=== PATIENT | female | born 1960 | race Caucasian/White ===

== ENCOUNTER 2020-09-29 20:41 | Emergency (ER) | payer MEDICARE ==
[~2020-09-29] VITALS: Ht 157.5 cm; Wt 63.5 kg
[2020-09-29] MEDS ORDERED: FLUT50BL (21:12)
[2020-09-29] MEDS ORDERED: [UNRECOGNIZED DRUG - OTHER] (21:12)
[2020-09-29] MEDS ORDERED: SERT-269 (21:12)
[2020-09-29] MEDS ORDERED: CELE100C (21:12)
[2020-09-29] MEDS ORDERED: PANT40GR (21:12)
[2020-09-29] MEDS ORDERED: [UNRECOGNIZED DRUG - OTHER] (21:12)
[2020-09-29] MEDS ORDERED: GABA100C6 (21:12)
[2020-09-29] MEDS ORDERED: MIRT15TA90 (21:12)
[2020-09-29] MEDS ORDERED: SUCRALFATE (21:12)
[2020-09-29] MEDS ORDERED: HYDR12.572 (21:12)
[2020-09-29] MEDS ORDERED: HYDR25TA (21:12)
--- NOTE | 2020-09-29 21:26 | PHYS DOC ---
Adult General Chief Complaint Chief Complaint: FLU SYMPTOM HPI HPI Patient is a 60-year-old female, with a past medical history significant for hypertension who recently moved to [place] who presents to the emergency department with a chief complaint of soft stools. States over the last couple of days she has had softer than normal stools but not watery diarrhea. Denies any history of melena/hematochezia or any now. Denies any recent travel, illnesses, fevers, Covid/flu symptoms other than the soft stool. Denies any chest pain, shortness of breath, abdominal pain, nausea, vomiting, Dysuria. Does endorse some urinary frequency and darker than normal urine. States she has had a slightly decreased appetite over the last couple of days but has been eating small amounts and trying to drink water. Denies any need for Tylenol or ibuprofen. Requested information for local primary care physicians as she does not have one. Review of Systems Review of Systems Review of systems otherwise unremarkable except noted in HPI. Physical Exam Physical Exam Constitutional: Well developed, well nourished, no acute distress, non-toxic appearance. [] HENT: Normocephalic, atraumatic, oropharynx moist, no oral exudates Eyes: conjunctiva normal, no discharge. [] Neck: Normal range of motion, no tenderness, Cardiovascular:Heart rate regular rhythm, no murmur [] Lungs & Thorax: Bilateral breath sounds clear to auscultation [] Abdomen: Bowel sounds normal, soft, no tenderness, no masses, no pulsatile masses. [] Skin: Warm, dry, no erythema, no rash. [] Back: No tenderness, no CVA tenderness. [] Extremities: No tenderness, no cyanosis, no clubbing, ROM intact, no edema. [] Neurologic: Alert and oriented X 3, normal motor function, normal sensory function, no focal deficits noted. [] Psychologic: Affect normal, judgement normal, mood normal. [] EKG EKG [] Radiology/Procedures Radiology/Procedures [] Heart Score Risk Factors: Risk Factors: DM, Current or recent (<one month) smoker, HTN, HLP, family history of CAD, obesity. Risk Scores: Risk Factors: DM, Current or recent (<one month) smoker, HTN, HLP, family history of CAD, obesity. Course & Med Decision Making Course & Med Decision Making Patient is a pleasant 60-year-old female who presents with loose stools for 2 days Vital signs notable for hypertension. Physical exam noted above. Patient otherwise completely asymptomatic and feeling well. Urine sample suggestive of urinary tract infection. Started on Keflex in the ED. Given prescription of Keflex. Discussed all findings with patient and given primary care physician contact information. Advised to call first thing Friday morning to set up a follow-up appointment and establish care. Advised a light diet over the next few days as well as plenty of hydration. Advised quarantine for the next couple of days until she talks to her doctor just in case she does have an infection including Covid/flu even becoming cold. Given information on Covid. Advised to come back to the ED immediately with any new or concerning symptoms. Patient grateful, verbalized understanding and agreed with plan of discharge. [] Dragon Disclaimer Dragon Disclaimer This electronic medical record was generated, in whole or in part, using a voice recognition dictation system. Departure Departure: Impression: Primary Impression: Loose stools Condition: GOOD Referrals: PCP,NO (PCP) Patient Instructions: Diarrhea, [id number] Additional Instructions: Here are some Covid fax and information. You were not tested for Covid and had very few symptoms suggesting Covid but do have the loose stools. Please read. COVID-19. It is an infection caused by a new type of coronavirus. COVID-19 will cause cold-like or mild flu symptoms in most. It can cause more severe symptoms like problems breathing in some. There is no treatment for COVID-19. The body will clear the infection over time. Self-care will help to ease discomfort. Steps to Take: Self-Care Rest as needed. Healthy habits may help you feel better. Steps include: Choose healthy foods including fruits and vegetables. Drink water throughout the day. Get plenty of sleep each night. If you smoke, try to quit. It may ease breathing. Avoid alcohol. Keep Others Healthy The virus can spread to others. Droplets are released every time you sneeze or cough. The droplets can get into the mouth, nose, or eyes of people near you and lead to infection. To lower the chances of spreading COVID-19 to others: Stay at home until your doctor has said it is safe to leave. If you tested positive this will mean staying isolated until both of the following are true: At least 7 days have passed since the start of illness. You are free of fever for at least 72 hours without the use of medicine. During this time: - Avoid public areas, events, or transportation. Do not return to work or school until your doctor has said it is safe to do so. - Call ahead if you need to go to a medical center. Let them know you may have COVID-19. It will help them guide you where to go. They may also ask you to wear a facemask when you come to the office. - If you call for emergency medical services, let them know you may have COVID- 19. While at home: - Try to avoid close contact with others. Stay about 6 feet away. - If possible, spend most of your time in a separate room from others. - Use a face mask if you will be in close contact with others such as sharing a room or vehicle. - Have someone wipe down common surfaces in the home. Use household velvet weaver every day on areas like doorknobs, counters, or sinks. - Cough or sneeze into a tissue. Throw the tissue away right after use. If a tissue is not available, cough or sneeze into your elbow. - Wash your hands often. Wash them after sneezing or coughing. Use soap and water and wash for at least 20 seconds. Alcohol based hand spool cleaner hand can be used if soap and water is not available. - Do not prepare food for others. Avoid sharing personal items like forks, spoons, or toothbrushes. - Avoid close contact with pets while you are sick. There is no evidence of the virus passing to pets. This is a safety step until more is known about this virus. Isolation can be frustrating. Social interaction can help. Keep in touch with friends and family through phone and tech options. You can still interact with others in your home, just keep a safe distance of about 6 feet. Follow-up: Your doctors office will check in with you to see if there are any changes in your health. You may be asked to keep track of symptoms to share with them. They will also let you know when you are clear to be in public again. Problems to Look Out For: Contact your doctor if your recovery is not going as you expect. Get emergency care if you have problems such as: - Trouble breathing - Nonstop chest pain or pressure - Changes in awareness, confusion, or problems waking - Lips or face have bluish color - Worsening of symptoms If you think you have an emergency, call for emergency medical services right away. As taken from [facility] Cephalexin (CEPHALEXIN) 500 Mg Capsule 1 CAP PO TID for UTI for 5 Days, #15 CAP Prov: GORDON HEADLEY MD 09/29/20 GORDON HEADLEY MD Sep 29, 2020 21:26
[2020-09-29 21:58] LABS: CLARITY,URINE HAZY; COLOR,URINE YELLOW
[2020-09-29 21:59] LABS: BILIRUBIN,URINE NEG (NEG); GLUCOSE,URINE NEG (NEG); NITRITE,URINE POS (NEG); UROBILINOGEN,URINE 0.2 mg/dL (0.2 mg/dL)
[2020-09-29 22:00] LABS: BACTERIA,URINE MOD /HPF (0-FEW); SQUAMOUS EPITHELIAL CELL,UR MOD /LPF; WBC,URINE >40 /HPF (0-4)
[2020-09-29] MEDS ORDERED: CEPH500C PO (22:04)
[2020-09-29] MEDS ORDERED: CEPHALEXIN 250 MG CAPSULE PO ONE (22:15)
[2020-09-29 22:16] VITALS: BP 150/84
== END 2020-09-29 22:21 | disposition home or self-care (01) ==
LOC: ER 20:41
DX: R19.7 Diarrhea, unspecified (principal); R35.0 Frequency of micturition; I10 Essential (primary) hypertension
CPT/HCPCS: 81001; 87077; 87086; 87186; 99283

== ENCOUNTER → 2020-12-19 | Outpatient (CLI) | payer MEDICARE ==
[~2020-12-19] MED LIST: CELE100C; CEPH500C PO; FLUT50BL; GABA100C6; HYDR12.572; HYDR25TA; MIRT15TA90; PANT40GR; SERT-269; SUCRALFATE; [UNRECOGNIZED DRUG - OTHER]; [UNRECOGNIZED DRUG - OTHER]
--- NOTE | 2020-12-19 15:48 | RAD ---
EXAM: Right shoulder, 3 views. HISTORY: Pain. COMPARISON: None. FINDINGS: 3 views of the right shoulder obtained. There is a right shoulder arthroplasty. There is sl ight widening of the glenohumeral joint space which is likely projectional. There is chronic degenera tive change and postoperative change involving the glenoid. There is internal fixation of a healed ri ght clavicle fracture. IMPRESSION: 1. Right shoulder arthroplasty. There is no evidence of arthroplasty loosening or periprosthetic frac ture. 2. Degenerative and postoperative changes involving the glenoid. There is slight widening of the lurdes ohumeral joint space which is likely projectional. This is not clearly within limits to suggest sublu xation. Electronically signed by: Annalee Carrillo MD (12/19/2020 3:46 PM) [id number]
== END ==
LOC: RAD 15:25
PROVIDERS: ATTEND Physician Assistant
DX: M19.011 Primary osteoarthritis, right shoulder (principal)
CPT/HCPCS: 73030

== ENCOUNTER 2021-09-20 21:44 | Emergency (ER) | payer MEDICARE ==
[~2021-09-20] VITALS: Ht 157.5 cm; Wt 63.5 kg
[2021-09-20 21:57] VITALS: BP 158/93
--- NOTE | 2021-09-20 22:50 | PHYS DOC ---
Past History Past Medical History: Depression, Hypertension Additional Past Medical Histor: clsed head injury, TBI, Autistic Past Surgical History: Hysterectomy Additional Past Surgical Histo: shoulder, bilateral knee replacements Alcohol Use: None Adult General Chief Complaint Chief Complaint: ALTERED MENTAL STATUS HPI HPI Patient is a 61-year-old female with a history of anxiety and depression who presents to the emergency department with a chief complaint of some generalized body aches over the last couple days that she noticed began the next day after going to the movie theater. Patient and family wondering if she has COVID and wants a COVID swab. Denies any recent travel, traumas, fevers, rash, other illnesses, known ill contacts, chest pain, shortness of breath, abdominal pain, nausea, vomiting, diarrhea, dysuria, hematuria, blood in the stool. States that her urine does seem to be darker than usual and having some frequency. Denies any alcohol or drug use states she is eating and drinking normally for her. States she is otherwise making urine and stool normally for her. Denies any numbness/weakness/tingling. Denies any trouble sitting, standing or walking. Review of Systems Review of Systems Review of systems otherwise unremarkable except noted in HPI Allergies Allergies Allergies Coded Allergies Type Severity Reaction Last Updated Verified No Known Drug Allergies 09/29/20 No Physical Exam Physical Exam Constitutional: Well developed, well nourished, no acute distress, non-toxic appearance. [] HENT: Normocephalic, atraumatic, bilateral external ears normal, oropharynx moist, no oral exudates, nose normal. [] Eyes: conjunctiva normal, no discharge. [] Neck: Normal range of motion, no tenderness, supple, no stridor. [] Cardiovascular:Heart rate regular rhythm, no murmur [] Lungs & Thorax: Bilateral breath sounds clear to auscultation [] Abdomen: soft, no tenderness, no masses, no pulsatile masses. [] Skin: Warm, dry, no erythema, no rash. [] Back: No tenderness, no CVA tenderness. [] Extremities: No tenderness, no cyanosis, no clubbing, ROM intact, no edema. [] Neurologic: Alert and oriented X 3, normal motor function, normal sensory function, no focal deficits noted. [] Psychologic: Affect normal, judgement normal, mood normal. [] Current Patient Data Vital Signs Vital Signs Date Time Temp Pulse Resp B/P (MAP) Pulse Ox O2 Delivery O2 Flow Rate FiO2 09/20/21 21:57 98.6 86 18 158/93 (114) 97 Room Air EKG EKG [] Radiology/Procedures Radiology/Procedures [] Heart Score C/O Chest Pain: No Risk Factors: Risk Factors: DM, Current or recent (<one month) smoker, HTN, HLP, family history of CAD, obesity. Risk Scores: Risk Factors: DM, Current or recent (<one month) smoker, HTN, HLP, family history of CAD, obesity. Course & Med Decision Making Course & Med Decision Making Patient is a 61-year-old female who presents for COVID swab, urinary frequency and some body aches Vital signs notable for mild hypertension. Physical exam noted above. Urinalysis with nitrite positive urinary tract infection. Started on antibiotics in the ED. COVID swab pending. Discussed COVID education and quarantine. Discussed symptom management at home. Discussed antibiotics. Advised on diet and fluid intake. Advised to follow- up in the morning with her primary care physician to update on ED visit. Gave return precautions to the ED. Family grateful, verbalized understanding and agreed with plan of discharge. [] Dragon Disclaimer Dragon Disclaimer This electronic medical record was generated, in whole or in part, using a voice recognition dictation system. Departure Departure: Impression: Primary Impression: UTI (urinary tract infection) Additional Impression: Person under investigation for COVID-19 Disposition: 01 HOME / SELF CARE / HOMELESS Condition: GOOD Referrals: JEAN BARRETT MD (PCP) Patient Instructions: Urinary Tract Infection, Viral Syndrome Additional Instructions: You have been tested for or diagnosed with COVID-19. It is an infection caused by a new type of coronavirus. COVID-19 will cause cold-like or mild flu symptoms in most. It can cause more severe symptoms like problems breathing in some. There is no treatment for COVID-19. The body will clear the infection over time. Self-care will help to ease discomfort. Steps to Take: Self-Care Rest as needed. Healthy habits may help you feel better. Steps include: Choose healthy foods including fruits and vegetables. Drink water throughout the day. Get plenty of sleep each night. If you smoke, try to quit. It may ease breathing. Avoid alcohol. Keep Others Healthy The virus can spread to others. Droplets are released every time you sneeze or cough. The droplets can get into the mouth, nose, or eyes of people near you and lead to infection. To lower the chances of spreading COVID-19 to others: Stay at home until your doctor has said it is safe to leave. If you tested positive this will mean staying isolated until both of the following are true: At least 7 days have passed since the start of illness. You are free of fever for at least 72 hours without the use of medicine. During this time: - Avoid public areas, events, or transportation. Do not return to work or school until your doctor has said it is safe to do so. - Call ahead if you need to go to a medical center. Let them know you may have COVID-19. It will help them guide you where to go. They may also ask you to wear a facemask when you come to the office. - If you call for emergency medical services, let them know you may have COVID- 19. While at home: - Try to avoid close contact with others. Stay about 6 feet away. - If possible, spend most of your time in a separate room from others. - Use a face mask if you will be in close contact with others such as sharing a room or vehicle. - Have someone wipe down common surfaces in the home. Use household animal physiologist every day on areas like doorknobs, counters, or sinks. - Cough or sneeze into a tissue. Throw the tissue away right after use. If a tissue is not available, cough or sneeze into your elbow. - Wash your hands often. Wash them after sneezing or coughing. Use soap and water and wash for at least 20 seconds. Alcohol based hand tank car cleaner can be used if soap and water is not available. - Do not prepare food for others. Avoid sharing personal items like forks, spoo ns, or toothbrushes. - Avoid close contact with pets while you are sick. There is no evidence of the virus passing to pets. This is a safety step until more is known about this virus. Isolation can be frustrating. Social interaction can help. Keep in touch with friends and family through phone and tech options. You can still interact with others in your home, just keep a safe distance of about 6 feet. Follow-up: Your doctors office will check in with you to see if there are any changes in your health. You may be asked to keep track of symptoms to share with them. They will also let you know when you are clear to be in public again. Problems to Look Out For: Contact your doctor if your recovery is not going as you expect. Get emergency care if you have problems such as: - Trouble breathing - Nonstop chest pain or pressure - Changes in awareness, confusion, or problems waking - Lips or face have bluish color - Worsening of symptoms If you think you have an emergency, call for emergency medical services right away. As taken from [facility] Cephalexin (KEFLEX) 500 Mg Capsule 1 CAP PO BID for UTI for 7 Days, #14 CAP Prov: GORDON HEADLEY MD 09/20/21 Problem Qualifiers GORDON HEADLEY MD Sep 20, 2021 22:50
[2021-09-20 23:20] LABS: BACTERIA,URINE MANY /HPF (0-FEW); BILIRUBIN,URINE NEG (NEG); CLARITY,URINE HAZY; COLOR,URINE YELLOW; GLUCOSE,URINE NEG (NEG); NITRITE,URINE POS (NEG); SQUAMOUS EPITHELIAL CELL,UR FEW /LPF; UROBILINOGEN,URINE 0.2 mg/dL (0.2 mg/dL); WBC,URINE >40 /HPF (0-4)
[2021-09-20] MEDS ORDERED: CEPH500C PO (23:52)
[2021-09-21] MEDS ORDERED: cefTRIAXone IM 1 GM VIAL IM ONE
[2021-09-21 00:23] LABS: INFLUENZA A PATIENT NEGATIVE (NEGATIVE); INFLUENZA B PATIENT NEGATIVE (NEGATIVE)
== END 2021-09-21 00:10 | disposition home or self-care (01) ==
LOC: ER 21:44
DX: N39.0 Urinary tract infection, site not specified (principal); I10 Essential (primary) hypertension; Z20.822 Contact with and (suspected) exposure to COVID-19; Z87.820 Personal history of traumatic brain injury
CPT/HCPCS: 81001; 87086; 87186; 87428; 96372; 99283; J0696

== ENCOUNTER 2021-11-04 18:42 | Emergency (ER) | payer MEDICARE ==
[~2021-11-04] VITALS: Ht 157.5 cm; Wt 63.5 kg
[2021-11-04] MEDS ORDERED: guaiFENesin/CODEINE 100mg/10mg 5 ML LIQUID PO PRN (19:00)
[2021-11-04] MEDS ORDERED: ACETAMINOPHEN 500 MG TABLET PO ONE (19:00)
[2021-11-04] MEDS ORDERED: IV RINGERS SOLUTION,LACTATED 1,000 ML IV ONE (19:00)
--- NOTE | 2021-11-04 19:04 | PHYS DOC ---
Past History Past Medical History: Depression, Hypertension Additional Past Medical Histor: clsed head injury, TBI, Autistic Past Surgical History: Hysterectomy Additional Past Surgical Histo: shoulder, bilateral knee replacements Alcohol Use: None Adult General HPI HPI Patient is a 61-year-old female who presents with a chief complaint of 2 days of productive cough, chills, nonbloody nonbilious emesis yesterday but not today, and a couple episodes of nonbloody soft stool today. States she has been Covid vaccinated. Denies any recent trauma, travel, known ill contacts, chest pain, shortness of breath, abdominal pain. Denies any dysuria, hematuria. States she had not taken any medications. Review of Systems Review of Systems Review of systems otherwise unremarkable except noted in HPI Allergies Allergies Allergies Coded Allergies Type Severity Reaction Last Updated Verified No Known Drug Allergies 09/29/20 No Physical Exam Physical Exam Constitutional: Well developed, well nourished, no acute distress, non-toxic appearance. [] HENT: Normocephalic, atraumatic, bilateral external ears normal, oropharynx moist, no oral exudates, nose normal. [] Eyes: conjunctiva normal, no discharge. [] Neck: Normal range of motion, no tenderness, supple, no stridor. [] Cardiovascular: Sinus tachycardia Lungs & Thorax: No respiratory distress, tachypnea, upper respiratory congestion Abdomen: soft, no tenderness, no masses, no pulsatile masses. [] Skin: Warm, dry, no erythema, no rash. [] Extremities: No tenderness, no cyanosis, no clubbing, ROM intact, no edema. [] Neurologic: Alert and oriented X 3, no focal deficits noted. [] Psychologic: Affect normal, judgement normal, mood normal. [] EKG EKG [] Radiology/Procedures Radiology/Procedures [] Heart Score C/O Chest Pain: No Risk Factors: Risk Factors: DM, Current or recent (<one month) smoker, HTN, HLP, family history of CAD, obesity. Risk Scores: Risk Factors: DM, Current or recent (<one month) smoker, HTN, HLP, family history of CAD, obesity. Course & Med Decision Making Course & Med Decision Making Patient is a 61-year-old female who presents with 2 days of cold/flu/COVID symptoms Vital signs notable for fever and tachycardia as well as tachypnea. Physical exam noted above. IV fluid began. Given Tylenol, ibuprofen and cough syrup. Laboratory analysis notable for mildly elevated creatinine and anion gap likely secondary to dehydration from nausea vomiting and diarrhea. After IV fluid resuscitation and medications, patient's symptoms resolved, she stated she was feeling much better, was making urine and wanted to go home. Discussed all findings with patient. Advised on symptom management at home over the next several days. Advised on diet and fluid status. Advised to call primary care physician in the morning to update on ED visit. Discussed viral syndromes in general and COVID and given COVID education instructions if PCR is positive. Gave return precautions to the ED. Patient grateful, verbalized understanding and agreed with plan of discharge. [] Dragon Disclaimer Dragon Disclaimer This electronic medical record was generated, in whole or in part, using a voice recognition dictation system. Departure Departure: Impression: Primary Impression: Nausea and vomiting Additional Impressions: Viral syndrome Dehydration Elevated serum creatinine Disposition: HOME / SELF CARE / HOMELESS Condition: STABLE Referrals: JEAN BARRETT MD (PCP) Patient Instructions: Viral Syndrome Additional Instructions: Thank you for coming into the emergency department tonight and allowing us to take care of you. Please read the attached information carefully to go over things we discussed. Please continue a Tylenol, ibuprofen and Benadryl regimen every 6-8 hours at home over the next couple of days for symptom control. You can add dextromethorphan cough syrup that she can get [id number] as well. It is very important that you eat at least 3-4 small nutritious meals daily, drink plenty of fluids and take a One-A-Day vitamin as we discussed. Your Covid swab should result tomorrow to be called with the results. Please quarantine until then. It is very important you follow-up in the morning with your primary care physician update on your ED visit and set up a post ER follow-up visit as soon as possible. Please come back with new or concerning symptoms as we discussed You have been tested for COVID-19. It is an infection caused by a new type of coronavirus. COVID-19 will cause cold-like or mild flu symptoms in most. It can cause more severe symptoms like problems breathing in some. There is no treatment for COVID-19. The body will clear the infection over time. Self-care will help to ease discomfort. Steps to Take: Self-Care Rest as needed. Healthy habits may help you feel better. Steps include: Choose healthy foods including fruits and vegetables. Drink water throughout the day. Get plenty of sleep each night. If you smoke, try to quit. It may ease breathing. Avoid alcohol. Keep Others Healthy The virus can spread to others. Droplets are released every time you sneeze or cough. The droplets can get into the mouth, nose, or eyes of people near you and lead to infection. To lower the chances of spreading COVID-19 to others: Stay at home until your doctor has said it is safe to leave. If you tested positive this will mean staying isolated until both of the following are true: At least 7 days have passed since the start of illness. You are free of fever for at least 72 hours without the use of medicine. However the CDC guidelines for quarantine change frequently, so you should check them daily. During this time: - Avoid public areas, events, or transportation. Do not return to work or school until your doctor has said it is safe to do so. - Call ahead if you need to go to a medical center. Let them know you may have COVID-19. It will help them guide you where to go. They may also ask you to wear a facemask when you come to the office. - If you call for emergency medical services, let them know you may have COVID- 19. While at home: - Try to avoid close contact with others. Stay about 6 feet away. - If possible, spend most of your time in a separate room from others. - Use a face mask if you will be in close contact with others such as sharing a room or vehicle. - Have someone wipe down common surfaces in the home. Use household summons server every day on areas like doorknobs, counters, or sinks. - Cough or sneeze into a tissue. Throw the tissue away right after use. If a tissue is not available, cough or sneeze into your elbow. - Wash your hands often. Wash them after sneezing or coughing. Use soap and water and wash for at least 20 seconds. Alcohol based hand silver cleaner can be used if soap and water is not available. - Do not prepare food for others. Avoid sharing personal items like forks, spoons, or toothbrushes. - Avoid close contact with pets while you are sick. There is no evidence of the virus passing to pets. This is a safety step until more is known about this virus. Isolation can be frustrating. Social interaction can help. Keep in touch with friends and family through phone and tech options. You can still interact with others in your home, just keep a safe distance of about 6 feet. Follow-up: Your doctors office will check in with you to see if there are any changes in your health. You may be asked to keep track of symptoms to share with them. They will also let you know when you are clear to be in public again. Problems to Look Out For: Contact your doctor if your recovery is not going as you expect. Get emergency care if you have problems such as: - Trouble breathing - Nonstop chest pain or pressure - Changes in awareness, confusion, or problems waking - Lips or face have bluish color - Worsening of symptoms If you think you have an emergency, call for emergency medical services right away. As taken from [facility] Problem Qualifiers GORDON HEADLEY MD Nov 04, 2021 19:04
[2021-11-04] MEDS ORDERED: KETOROLAC 30 MG/ML VIAL. IVP ONE (19:15)
[2021-11-04 19:31] LABS: BASO # 0.1 x10^3/uL (0.0-0.2); BASO % 1 % (0-3); EOS % 0 % (0-3); HEMATOCRIT 42.7 % (36.0-47.0); HEMOGLOBIN 13.7 g/dL (12.0-15.5); LYMPH # 1.1 x10^3/uL (1.0-4.8); LYMPH % 9 % (24-48); MEAN CORPUSCULAR HEMOGLOBIN 30 pg (25-35); MEAN CORPUSCULAR HGB CONC 32 g/dL (31-37); MEAN CORPUSCULAR VOLUME 95 fL (79-100); MONO # 1.3 x10^3/uL (0.0-1.1); MONO % 10 % (0-9); NEUT % 80 % (31-73); PLATELET COUNT 356 x10^3/uL (140-400); RED BLOOD COUNT 4.52 x10^6/uL (3.50-5.40); RED CELL DISTRIBUTION WIDTH 14.6 % (11.5-14.5); WHITE BLOOD COUNT 12.6 x10^3/uL (4.0-11.0)
[2021-11-04 19:44] LABS: CALCIUM 8.9 mg/dL (8.5-10.1); CREATININE 1.7 mg/dL (0.6-1.0); GFR 30.5; MAGNESIUM 1.9 mg/dL (1.8-2.4); POTASSIUM 4.4 mmol/L (3.5-5.1)
--- NOTE | 2021-11-04 19:56 | EKG ---
[address] [address] Test Date: 2021-11-04 Test Time: 19:31:26 Pat Name: AIRAM MONTES Department: Room: Gender: F Range Master: TAMARA : 1960 Requested By: GORDON HEADLEY Order Number: [id number] Reading MD: Christoph Alfaro MD Measurements Intervals [place] Rate: 123 P: -3 MO: 124 QRS: 87 QRSD: 74 T: 26 QT: 292 QTc: 423 Interpretive Statements SINUS TACHYCARDIA NON-SPECIFIC ST/T CHANGES Electronically Signed On 11-05-2021 9:47:45 GAS MASK INSPECTOR by Christoph Alfaro MD
[2021-11-04 21:19] VITALS: BP 103/67
[2021-11-04] MEDS ORDERED: ONDANSETRON 4MG ODT 4TABLET STARTPACK. PO ONE (21:45)
--- NOTE | 2021-11-04 21:58 | RAD ---
Exam: Chest 2 views INDICATION: Shortness of breath TECHNIQUE: Frontal and lateral views the chest Comparisons: None FINDINGS: The cardiomediastinal silhouette and pulmonary vessels are within normal limits. The lung and pleural spaces are clear. IMPRESSION: No acute cardiopulmonary process. Electronically signed by: Ari Davies MD (11/04/2021 9:55 PM) [place]
--- NOTE | 2021-11-06 07:34 | EKG ---
[address] [address] Test Date: 2021-11-04 Test Time: 19:31:26 Pat Name: AIRAM MONTES Department: Room: Gender: F Lead Java Software Engineer: TAMARA : 1960 Requested By: GORDON HEADLEY Order Number: [id number] Reading MD: Melo Richey Measurements Intervals [place] Rate: 123 P: -3 [place]: 124 QRS: 87 QRSD: 74 T: 26 QT: 292 QTc: 423 Interpretive Statements SINUS TACHYCARDIA T ABNORMALITY IN ANTEROSEPTAL LEADS ABNORMAL ECG RI6.01 No previous ECG available for comparison Electronically Signed On 11-08-2021 8:58:16 TELECOMMUNICATIONS FIELD ENGINEER by Melo Richey
== END 2021-11-04 21:50 | disposition home or self-care (01) ==
LOC: ER 18:42
DX: E86.0 Dehydration (principal); B34.9 Viral infection, unspecified; R79.89 Other specified abnormal findings of blood chemistry; R11.2 Nausea with vomiting, unspecified; I10 Essential (primary) hypertension; Z20.822 Contact with and (suspected) exposure to COVID-19
CPT/HCPCS: 36415; 71046; 80048; 83735; 84484; 85025; 87426; 93005; 96361; 96374; 99285; C9803; J1885; J7120; Q0162; U0003

== ENCOUNTER 2021-12-17 16:24 | Emergency (ER) | payer MEDICARE ==
[~2021-12-17] VITALS: Ht 157.5 cm; Wt 61.4 kg
[2021-12-17 16:40] VITALS: BP 125/72
[2021-12-17] MEDS ORDERED: ONDANSETRON ODT 4 MG TAB.RAPDIS PO ONE (17:00)
[2021-12-17] MEDS ORDERED: IBUPROFEN 600 MG TABLET. PO ONE (17:00)
--- NOTE | 2021-12-17 17:10 | PHYS DOC ---
Past History Past Medical History: Depression, Hypertension Additional Past Medical Histor: clsed head injury, TBI, Autistic (SANDIE BECERRA APRN) Past Surgical History: Hysterectomy, Other Additional Past Surgical Histo: shoulder, bilateral knee replacements (SANDIE BECERRA APRN) Alcohol Use: None (SANDIE BECERRA APRN) General Adult EDM: Chief Complaint: CONGESTION HPI: HPI: Patient is a 61-year-old female who presents to the emergency department for nasal congestion and drainage, sinus pressure pain, nonproductive cough, nausea, diarrhea and feeling like her ears are full. She reports that symptoms started a couple of days ago. She has a history of environmental allergies and reports that it feels like her allergies are getting bad. She has been taking Flonase and Tylenol without relief. She denies any vomiting today. She denies fever, sore throat, vomiting. (SANDIE BECERRA APRN) Review of Systems: Review of Systems: Constitutional: See HPI HENT: See HPI Respiratory: See HPI GI: See HPI (SANDIE BECERRA APRN) Current Medications: Current Meds: Current Medications Medications (Trade) Dose Ordered Sig/Jordan Start Time Stop Time Status Last Admin Dose Admin Ibuprofen (Motrin) 600 mg 1X ONCE 12/17/21 17:00 12/17/21 17:01 UNV Ondansetron HCl (Zofran Odt) 4 mg 1X ONCE 12/17/21 17:00 12/17/21 17:01 UNV (SANDIE BECERRA APRN) Allergies: Allergies: Allergies Coded Allergies Type Severity Reaction Last Updated Verified No Known Drug Allergies 09/29/20 No (SANDIE BECERRA APRN) Physical Exam: PE: Constitutional: Well developed, well nourished, no acute distress, non-toxic appearance. [] HENT: Normocephalic, atraumatic, bilateral external ears normal, oropharynx moist, no tonsillar enlargement or erythema or exudate, uvula midline, no trismus, no phonation changes, postnasal drainage noted, maxillary and frontal sinus pain with palpation no oral exudates, nose normal. [] Eyes: PERRL, EOMI, conjunctiva normal, no discharge. [] Neck: Normal range of motion, no tenderness, supple, no stridor. [] Cardiovascular:Heart rate tachycardic rhythm, no murmur [] Lungs & Thorax: Bilateral breath sounds clear to auscultation [] Abdomen: Bowel sounds normal, soft, no tenderness, no masses, no pulsatile masses. [] Skin: Warm, dry, no erythema, no rash. [] Back: No tenderness, normal range of motion Extremities: No tenderness, no cyanosis, no clubbing, ROM intact, no edema. [] Neurologic: Alert and oriented X 3, normal motor function, normal sensory function, no focal deficits noted. [] Psychologic: Affect normal, judgement normal, mood normal. [] (SANDIE BECERRA APRN) Current Patient Data: Labs: Laboratory Tests Test 12/17/21 17:10 Influenza Type A (Rapid) Negative Influenza Type B (Rapid) Negative SARS-CoV-2 Antigen (Rapid) Negative Current Medications Medications (Trade) Dose Ordered Sig/Jordan Route PRN Reason Start Time Stop Time Status Last Admin Dose Admin Ondansetron HCl (Zofran Odt) 4 mg 1X ONCE PO 12/17/21 17:00 12/17/21 17:06 DC 12/17/21 17:13 Ibuprofen (Motrin) 600 mg 1X ONCE PO 12/17/21 17:00 12/17/21 17:06 DC 12/17/21 17:12 (SANDIE BECERRA APRN) EKG: EKG: [] (SANDIE BECERRA APRN) Radiology/Procedures: Radiology/Procedures: []PROCEDURE: CHEST PA & LATERAL XR CHEST 2V History: Reason: cough, soa / Spl. Instructions: / History: Comparison: November 04, 2021 Findings: No consolidation or pleural effusion. Normal heart size. No pneumothorax. Postoperative changes right shoulder. Internal fixation right clavicle. Surgical clips right upper quadrant. Impression: 1. No acute cardiopulmonary process. Electronically signed by: Ayaz Thornton DO (12/17/2021 5:18 PM) [facility] DICTATED AND SIGNED BY: AYAZ THORNTON DO DATE: 12/17/211716 CC: SANDIE BECERRA APRN; JEAN BARRETT MD ~ (SANDIE BECERRA APRN) Heart Score: C/O Chest Pain: N/A Risk Factors: Risk Factors: DM, Current or recent (<one month) smoker, HTN, HLP, family history of CAD, obesity. Risk Scores: Score 0 - 3: 2.5% MACE over next 6 weeks - Discharge Home Score 4 - 6: 20.3% MACE over next 6 weeks - Admit for Clinical Observation Score 7 - 10: 72.7% MACE over next 6 weeks - Early Invasive Strategies (SANDIE BECERRA APRN) Course & Med Decision Making: Course & Med Decision Making Pertinent Labs and Imaging studies reviewed. (See chart for details) Patient presents to the emergency department today for nasal congestion/draina ge, sinus headache, nonproductive cough, shortness of breath, nausea and feeling like her ears are full started 2 days ago. Patient reports that she typically has seasonal allergies around this time and it does feel similar. Work-up in the ER consisted of COVID and influenza testing, chest x-ray to rule out pneumonia. Patient treated with pain medication, nausea medication. She was p.o. challenged in the ER. She is able to tolerate oral intake. COVID and flu test was negative. Chest x-ray did not show any acute findings. Patiently treat with antibiotic for sinusitis. Advised to take an allergy medication like Zyrtec and continue her Flonase use. I discussed with patient all findings and diagnostic testing as well as the need to follow-up with PCP for further evaluation and treatment or return to the ER if any new or worsening symptoms. Strict return precautions were also discussed at length. Patient voiced understanding and agreement with the plan. Patient is hemodynamically stable at the time of disposition. (SANDIE BECERRA APRN) Dragon Disclaimer: Dragon Disclaimer: This electronic medical record was generated, in whole or in part, using a voice recognition dictation system. (SANDIE BECERRA APRN) Departure Departure: Impression: Primary Impression: Sinusitis Qualified Codes: J01.00 - Acute maxillary sinusitis, unspecified Disposition: HOME / SELF CARE / HOMELESS Condition: GOOD Referrals: JEAN BARRETT MD (PCP) Patient Instructions: Sinusitis Additional Instructions: You are seen in the emergency department for nausea, nasal congestion, sinus headache, cough. You were negative for flu and COVID. Your chest x-ray did not show any pneumonia. We will be treating you with an antibiotic for sinusitis. Please start and finish the antibiotic completely. Increase your fluids. Take Tylenol and ibuprofen at home for any pain. You are being discharged home with nausea medication you can take as needed. I advise you to take Zyrtec [id number] and you can continue to use her Flonase. Follow-up with your primary care provider tomorrow regarding your ER visit. Return to the emergency department if you develop shortness of breath, chest pain, high fevers refractory treatment, tractable nausea or vomiting, weakness. Scripts Amoxicillin/Potassium Clav (AUGMENTIN 875-125 TABLET) 1 Each Tablet 1 TAB PO BID for sinusitis for 7 Days, #14 TAB 0 Refills Prov: SANDIE BECERRA APRN 12/17/21 Attending Signature Attending Signature I have reviewed the PA/RENTAL CLERK TOOL [employer] EQUIPMENT's note and plan of care. I was available for consultation as needed during the patient's visit in the emergency department. I agree with the clinical impression, plan, and disposition. (MARCEL LOGAN DO) SANDIE BECERRA APRN Dec 17, 2021 17:10 MARCEL LOGAN DO Dec 18, 2021 07:36
--- NOTE | 2021-12-17 17:21 | RAD ---
XR CHEST 2V History: Reason: cough, soa / Spl. Instructions: / History: Comparison: November 04, 2021 Findings: No consolidation or pleural effusion. Normal heart size. No pneumothorax. Postoperative changes right shoulder. Internal fixation right clavicle. Surgical clips right upper quadrant. Impression: 1. No acute cardiopulmonary process. Electronically signed by: Ayaz Thornton DO (12/17/2021 5:18 PM) [facility] [place]
[2021-12-17 17:52] LABS: INFLUENZA A PATIENT NEGATIVE (NEGATIVE); INFLUENZA B PATIENT NEGATIVE (NEGATIVE)
[2021-12-17] MEDS ORDERED: AMOX1TAB61 PO (17:55)
== END 2021-12-17 17:57 | disposition home or self-care (01) ==
LOC: ER 16:24
DX: J01.00 Acute maxillary sinusitis, unspecified (principal); R19.7 Diarrhea, unspecified; I10 Essential (primary) hypertension; Z20.822 Contact with and (suspected) exposure to COVID-19
CPT/HCPCS: 71046; 87428; 99284; Q0162